=== PATIENT | male | born 1960 | race Caucasian/White ===

== ENCOUNTER 2016-06-14 22:40 | Emergency (ER) | payer OTHER ==
[~2016-06-14 22:40] MED LIST: ALBUTEROL HFA60 DOSE IN; ENTERIC COATED325 M1 PO; FLOVENT HFA110 MCG IN; LASIX20 MG PO; MICRO-K 10 EQU10 MEQ PO; PRINIVIL5 MG PO; TOPROL XL50 MG PO
--- NOTE | 2016-06-15 01:02 | ED NURSING NOTES ---
Clinical Report - Nurses [facility] [address] [place] [address] 06/14/2016 22:41 Patient: CHON BLACKMAN TRIAGE Alert. No acute distress. --22:51 Antolin Jalloh R.N. 22:50 06/14/16. BP: 113/75. RR: 16. O2 saturation: 100%. Temp: 99 F. --22:51 Antolin Jalloh R.N. 22:53 06/14/16. HR: 93. O2 saturation: 95%. --22:54 Antolin Jalloh R.N. Triage time 2254 PM. Chief Complaint: CONSTIPATION. --22:59 Antolin Jalloh R.N. Weight: 90.7 kg. Height/Length: 71 inches. BMI: 27.9. --22:50 Antolin Jalloh R.N. Medications Albuterol Sulfate Inhalation. --22:51 Antolin Jalloh R.N. Clobetasol Propionate External. --22:51 Antolin Jalloh R.N. Flovent HFA Inhalation. --22:51 Antolin Jalloh R.N. Lasix Oral. --22:52 Antolin Jalloh R.N. Lisinopril Oral. --22:52 Antolin Jalloh R.N. Metoprolol Succinate ER Oral. --22:55 Antolin Jalloh R.N. MiraLax Oral. --22:55 Antolin Jalloh R.N. NexIUM Oral. --22:56 Antolin Jalloh R.N. Potassium Chloride Oral. --22:56 Antolin Jalloh R.N. ProAir HFA Inhalation. --22:56 Yeimi, Antolin, R.N. Ranitidine HCl Oral. --22:56 Antolin Jalloh R.N. Suprep Bowel Prep Oral. --22:56 Atnolin Jalloh R.N. Triamcinolone Acetonide External. --22:57 Antolin Jalloh R.N. Allergies Sulfa Antibiotics. --22:55 Antolin Jalloh R.N. Penicillin. --22:55 Antolin Jalloh R.N. History Arrived by private vehicle. Historian: patient. Accompanied by family. PAST MEDICAL HX: Immunizations: up-to-date. SOCIAL HX: Light tobacco smoker (cigarette)- less than 1/2 a pack per day. Alcohol use. (no). History of drug use: marijuana. No infectious disease exposure. FALL RISK ASSESSMENT: Fall risk assessment completed. No fall risk identified. NUTRITIONAL RISK ASSESSMENT: The nutritional risk assessment revealed no deficiencies. FUNCTIONAL ASSESSMENT: Functional assessment: no impairments noted. LEARNING NEEDS ASSESSMENT: The learning needs assessment revealed no barriers. SKIN INTEGRITY ASSESSMENT: Skin integrity risk assessment completed. No skin integrity risk identified. --22:59 Antolin Jalloh R.N. PROBLEMS: Congestive Heart Failure. Chest Pain. Constipation. Hearing Loss. COPD - Chronic Obstructive Pulmonary Disease. Lifestyle / Substance Problems. Bronchitis. Abdominal Pain. Cholecystitis. Immunizations. Gallbladder Disease. --22:58 Antolin Jalloh R.N. ADDITIONAL SURGERIES: Cholecystectomy. Shoulder Surgery. --22:58 Antolin Jalloh R.N. PHYSICAL ASSESSMENT Ambulatory to room. GENERAL / NEURO / PSYCH: Alert. Oriented X 4. Appears in no acute distress. HEENT: Mucous membranes are pink. RESPIRATORY: Respirations not labored. CVS: Normal sinus rhythm noted. Capillary refill less than 2 seconds. GI / : Abdominal distention. ( constipation). SKIN: Skin is warm and dry. --22:59 Antolin Jalloh R.N. NURSING PROGRESS NOTES Soap suds enema given with good return, patient tolerated the procedure well. --01:19 Antolin Jalloh R.N. DISPOSITION / DISCHARGE Condition at departure: improved. The goals identified in the patient's plan of care were met. Discharge instructions provided and reviewed with the patient. Reviewed medication(s) side effects, precautions, dosing and course information. Prescription(s) given to the patient. Patient verbalized understanding. Written instructions provided in Upper Sorbian. The patient was discharged home and accompanied by spouse. He left the Emergency Department ambulatory and via private vehicle. Spouse driving. FALL RISK ASSESSMENT: Fall risk assessment completed. No fall risk identified. --01:18 Antolin Jalloh R.N. 01:14 06/15/16. BP: 94/51 taken on the left arm, via an automated monitor, while lying. HR: 91. RR: 16. O2 saturation: 95%. Temp: 98.2 F (oral). Pain level now: 0/10. --01:18 Antolin Jalloh R.N. Departure time: 0119 AM. --01:19 Antolin Jalloh R.N. Locked/Released at 06/15/2016 1:20 by Antolin Jalloh R.N.
--- NOTE | 2016-06-15 01:02 | ED ORDER SUMMARY ---
..... Patient: CHON BLACKMAN OrderSheet [facility] VisitID: [id number] [address] [place] [address] 56y, M Registration Date/Time: 06/14/2016 ORDER SHEET Weight: 90.7 kg Allergies: Sulfa Antibiotics, Penicillin GENERAL ORDERS: Abdomen 1V Urgent (22:57 06/14/2016 EKoroleva P.A.-C) (Ack 23:00 LMuller) (0:01 GUnger) - (enema of choice) (22:57 06/14/2016 EKoroleva P.A.-C) (0:52 LMuller) CBC w Diff Urgent (22:57 06/14/2016 EKoroleva P.A.-C) (Ack 23:00 LMuller) (23:29 LMuller) CMP Urgent (22:57 06/14/2016 EKoroleva P.A.-C) (Ack 23:00 LMuller) (23:29 LMuller) MEDICATION ORDERS: IV FLUIDS: ORDER SHEET NOTES: [Electronically signed by Antolin Jalloh R.N. (:06/15/2016)] [Electronically signed by Emmy June MD (06:07 06/15/2016)] [Electronically locked/signed by Antolin Jalloh R.N. (:06/15/2016)]
--- NOTE | 2016-06-15 01:02 | ED NURSING NOTES ---
Clinical Report - Nurses [facility] [address] [place] [address] 06/14/2016 22:41 Patient: CHON BLACKMAN TRIAGE Alert. No acute distress. --22:51 Antolin Jalloh R.N. 22:50 06/14/16. BP: 113/75. RR: 16. O2 saturation: 100%. Temp: 99 F. --22:51 Antolin Jalloh R.N. 22:53 06/14/16. HR: 93. O2 saturation: 95%. --22:54 Antolin Jalloh R.N. Triage time 2254 PM. Chief Complaint: CONSTIPATION. --22:59 Antolin Jalloh R.N. Weight: 90.7 kg. Height/Length: 71 inches. BMI: 27.9. --22:50 Antolin Jalloh R.N. Medications Albuterol Sulfate Inhalation. --22:51 Antolin Jalloh R.N. Clobetasol Propionate External. --22:51 Antolin Jalloh R.N. Flovent HFA Inhalation. --22:51 Antolin Jalloh R.N. Lasix Oral. --22:52 Antolin Jalloh R.N. Lisinopril Oral. --22:52 Antolin Jalloh R.N. Metoprolol Succinate ER Oral. --22:55 Antolin Jalloh R.N. MiraLax Oral. --22:55 Antolin Jalloh R.N. NexIUM Oral. --22:56 Antolin Jalloh R.N. Potassium Chloride Oral. --22:56 Antolin Jalloh R.N. ProAir HFA Inhalation. --22:56 Yeimi, Antolin, R.N. Ranitidine HCl Oral. --22:56 Antolin Jalloh R.N. Suprep Bowel Prep Oral. --22:56 Antolin Jalloh R.N. Triamcinolone Acetonide External. --22:57 Antolin Jalloh R.N. Allergies Sulfa Antibiotics. --22:55 Antolin Jalloh R.N. Penicillin. --22:55 Antolin Jalloh R.N. History Arrived by private vehicle. Historian: patient. Accompanied by family. PAST MEDICAL HX: Immunizations: up-to-date. SOCIAL HX: Light tobacco smoker (cigarette)- less than 1/2 a pack per day. Alcohol use. (no). History of drug use: marijuana. No infectious disease exposure. FALL RISK ASSESSMENT: Fall risk assessment completed. No fall risk identified. NUTRITIONAL RISK ASSESSMENT: The nutritional risk assessment revealed no deficiencies. FUNCTIONAL ASSESSMENT: Functional assessment: no impairments noted. LEARNING NEEDS ASSESSMENT: The learning needs assessment revealed no barriers. SKIN INTEGRITY ASSESSMENT: Skin integrity risk assessment completed. No skin integrity risk identified. --22:59 Antolin Jlaloh R.N. PROBLEMS: Congestive Heart Failure. Chest Pain. Constipation. Hearing Loss. COPD - Chronic Obstructive Pulmonary Disease. Lifestyle / Substance Problems. Bronchitis. Abdominal Pain. Cholecystitis. Immunizations. Gallbladder Disease. --22:58 Antolin Jalloh R.N. ADDITIONAL SURGERIES: Cholecystectomy. Shoulder Surgery. --22:58 Antolin Jalloh R.N. PHYSICAL ASSESSMENT Ambulatory to room. GENERAL / NEURO / PSYCH: Alert. Oriented X 4. Appears in no acute distress. HEENT: Mucous membranes are pink. RESPIRATORY: Respirations not labored. CVS: Normal sinus rhythm noted. Capillary refill less than 2 seconds. GI / : Abdominal distention. ( constipation). SKIN: Skin is warm and dry. --22:59 Antolin Jalloh R.N. NURSING PROGRESS NOTES Soap suds enema given with good return, patient tolerated the procedure well. --01:19 Antolin Jalloh R.N. DISPOSITION / DISCHARGE Condition at departure: improved. The goals identified in the patient's plan of care were met. Discharge instructions provided and reviewed with the patient. Reviewed medication(s) side effects, precautions, dosing and course information. Prescription(s) given to the patient. Patient verbalized understanding. Written instructions provided in Kinyarwanda. The patient was discharged home and accompanied by spouse. He left the Emergency Department ambulatory and via private vehicle. Spouse driving. FALL RISK ASSESSMENT: Fall risk assessment completed. No fall risk identified. --01:18 Antolin Jalloh R.N. 01:14 06/15/16. BP: 94/51 taken on the left arm, via an automated monitor, while lying. HR: 91. RR: 16. O2 saturation: 95%. Temp: 98.2 F (oral). Pain level now: 0/10. --01:18 Antolin Jalloh R.N. Departure time: 0119 AM. --01:19 Antolin Jalloh R.N. Locked/Released at 06/15/2016 1:20 by Antolin Jalloh R.N.
--- NOTE | 2016-06-15 01:02 | ED ORDER SUMMARY ---
..... Patient: CHON BLACKMAN OrderSheet [facility] VisitID: [id number] [address] [place] [address] 56y, M Registration Date/Time: 06/14/2016 ORDER SHEET Weight: 90.7 kg Allergies: Sulfa Antibiotics, Penicillin GENERAL ORDERS: Abdomen 1V Urgent (22:57 06/14/2016 EKoroleva P.A.-C) (Ack 23:00 LMuller) (0:01 GUnger) - (enema of choice) (22:57 06/14/2016 EKoroleva P.A.-C) (0:52 LMuller) CBC w Diff Urgent (22:57 06/14/2016 EKoroleva P.A.-C) (Ack 23:00 LMuller) (23:29 LMuller) CMP Urgent (22:57 06/14/2016 EKoroleva P.A.-C) (Ack 23:00 LMuller) (23:29 LMuller) MEDICATION ORDERS: IV FLUIDS: ORDER SHEET NOTES: [Electronically signed by Antolin Jalloh R.N. (:06/15/2016)] [Electronically signed by Emmy June MD (06:07 06/15/2016)] [Electronically locked/signed by Antolin Jalloh R.N. (:06/15/2016)]
--- NOTE | 2016-06-15 01:02 | ED CLINICAL REPORT ---
Clinical Report - Physicians/Mid Levels [facility] [address] [place] [address] 06/14/2016 22:41 Patient: CHON BLACKMAN Time Seen: 22:58 Jun 14 2016. Arrived- By private vehicle. Historian- patient. HISTORY OF PRESENT ILLNESS Chief Complaint: ABDOMINAL PAIN. This started 1 months [employer] and is still present. It is described as cramping and dull and it is described as generalized in location. No nausea, loss of appetite, vomiting or diarrhea. (Constipation ongoing for a month. Reports previously seen at [facility] on the , recently seen at his pcp, and GI, referred for colonoscopy. Has had very small fine bm, brown, and with such hematochezia, bright red in nature. Pain is colicky in nature, and passes and improves from time to time. Denies emesis. Denies sob. Has tried mirilax, stool softeners, incrase in po fluid hydration at home. Has not had enema.). Similar symptoms previously: Recent medical care: The patient was seen recently at another facility in a clinic. ( Pt has been seen several times for this, and is pending colonoscopy.). REVIEW OF SYSTEMS No constipation, black stools, hematemesis, difficulty with urination or pain with urination. No urinary frequency, fever, headache, blurred vision or chest pain. No difficulty breathing, cough, joint pain, skin rash or chills. No back pain. Last bowel movement- possibly 1 month, small amt of stool every now and again. All systems otherwise negative, except as recorded above. PAST HISTORY No history of peptic ulcer. No history of bowel obstruction. Problems: Congestive Heart Failure. Chest Pain. Constipation. Hearing Loss. COPD - Chronic Obstructive Pulmonary Disease. Lifestyle / Substance Problems. Bronchitis. Abdominal Pain. Cholecystitis. Immunizations. Gallbladder Disease. Additional Surgeries: Cholecystectomy. Shoulder Surgery. Medications: Triamcinolone Acetonide External. Suprep Bowel Prep Oral. Ranitidine HCl Oral. ProAir HFA Inhalation. Potassium Chloride Oral. NexIUM Oral. MiraLax Oral. Metoprolol Succinate ER Oral. Lisinopril Oral. Lasix Oral. Flovent HFA Inhalation. Clobetasol Propionate External. Albuterol Sulfate Inhalation. Allergies: Penicillin. Sulfa Antibiotics. SOCIAL HISTORY Smoker- current status unknown. History of drug use: marijuana. No alcohol use. ADDITIONAL NOTES The nursing notes have been reviewed. PHYSICAL EXAM Vital Signs: 06/14/2016 22:53 HR: 93. O2 saturation: 95%. 06/14/2016 22:50 BP: 113/75. RR: 16. O2 saturation: 100%. Temp: 99 F. Appearance: Alert. Oriented X3. No acute distress. Eyes: Pupils equal, round and reactive to light. Eyes normal inspection. ENT: Ears normal. Nose normal. Neck: Normal inspection. No carotid bruit or lymphadenopathy. CVS: Normal heart rate and rhythm. Heart sounds normal. Rhythm normal. No cardiac murmur. Respiratory: No respiratory distress. Breath sounds normal. Abdomen: Soft. Mild tenderness diffusely and in the periumbilical area. No guarding, rebound tenderness or Restrepo's or obturator sign present. Abnormal bowel sounds: hyperactive. Distention. Back: Normal inspection. No CVA tenderness. Skin: Skin warm and dry. Normal skin color. No rash. Normal skin turgor. Extremities: Extremities exhibit normal ROM. Neuro: Oriented X 3. No motor deficit. No sensory deficit. LABS, X-RAYS, AND EKG KUB: No acute disease. Gas pattern normal. Psoas shadows normal. Soft tissues normal. No mass effect. No organomegaly present. No fracture or bony lesion present. Views: two-view AP. Technique: good. The X-rays were independently viewed by me and interpreted contemporaneously by me. Prior films were not available for comparison. Laboratory Tests: CBC w Diff: (ROBERT: 06/14/2016 23:06) ( MsgRcvd 06/14/2016 23:18) Final results Test Result Flag Units (Reference) WHITE BLOOD COUNT 14.9 H K/uL (4.5-11.5) RED BLOOD COUNT 4.45 L M/uL (4.50-5.90) HEMOGLOBIN 13.0 L gm/dL (13.5-17.5) HEMATOCRIT 39.8 L % (41.0-53.0) MEAN CELL VOLUME 89 fL (80-100) MEAN CORPUSCULAR HGB 29 pg (26-34) MEAN CORPUSCULAR HGB CONC 33 g/dL (31-37) RED CELL DISTRIBUTION WIDTH 13.1 % (11.6-14.8) PLATELET COUNT 540 H K/uL (150-400) LYMPH % 23.9 L % (25-40) MONO % 5.4 % (3-14) GRANULOCYTE % 70.7 CMP: (ROBERT: 06/14/2016 23:06) ( MsgRcvd 06/14/2016 23:33) Final results Test Result Flag Units (Reference) GLUCOSE 106 mg/dL (70-110) BUN 9 mg/dL (7-18) CREATININE 1.2 mg/dL (0.6-1.3) Estimated GFR >60 mL/min Estimated GFR- >60 mL/min Note: Persistent reduction over 3 months in eGFR<60 mL/min/1.73 m2 defines CKD. Patients with eGFR values>=60 mL/min/1.73 m2 may also have CKD if evidence ofpersistent proteinuria. Additional information may be foundat www.kidney.org. SODIUM 137 mmol/L (136-145) POTASSIUM 3.3 L mmol/L (3.5-5.1) CHLORIDE 98 mmol/L (98-107) CARBON DIOXIDE 32 mmol/L (21-32) CALCIUM 8.6 mg/dL (8.5-10.1) TOTAL PROTEIN 7.5 g/dL (6.4-8.2) ALBUMIN 3.2 L g/dL (3.3-5.0) BILIRUBIN, TOTAL 0.4 mg/dL (0.0-1.0) ALKALINE PHOSPHATASE 95 U/L (46-116) AST (SGOT) 21 U/L (15-37) ALT (SGPT) 34 U/L (12-78) . Pulse Oximetry: 06/14/2016 22:50 O2 saturation: 100%. (FIO2 - room air). Interpretation: normal. PROGRESS AND PROCEDURES Course of Care: Pt was given 2 enemas in the ED, with some response. I have d/w pt and girlfriend, at length, the importance of dietary changes to avoid further issues with constipation. Pt is encouraged to continue his plan to have the colonoscopy done. Patient and family counseled in person regarding the patient's stable condition, test results, diagnosis and need for additional testing and follow-up. Concerns were addressed. Old medical records reviewed. Disposition: Discharged. Condition: stable and improved. CLINICAL IMPRESSION Constipation INSTRUCTIONS Drink plenty of fluids. (Your tests look good. The best long-term solution to your constipation is to add more fiber into your diet. You can get this from many different fruits and vegetables (raw is best), as well as whole grains (seedy bread, wild or brown rice, quinoa). If chewing is an issue, make a smoothie (banana, lina/peach, pineapple and strawberry is a good combo). You can throw in flax or ryley seeds, and even kale. You may add a little sweetener, sparingly, to taste. Raw berries (strawberries, raspberries, blueberries) are also excellent for constipation prevention, and easy on the teeth. In the meantime, you may also take the bowel prep and give yourself enemas at home (available over the counter). Please keep your plan to follow up for a colonoscopy.). Warnings: GENERAL WARNINGS: Return or contact your physician immediately if your condition worsens or changes unexpectedly, if not improving as expected, or if other problems arise. Your Current Medications: CONTINUE TAKING THE FOLLOWING MEDICATIONS: Albuterol Sulfate Inhalation. Clobetasol Propionate External. Flovent HFA Inhalation. Lasix Oral. Lisinopril Oral. Metoprolol Succinate ER Oral. MiraLax Oral. NexIUM Oral. Potassium Chloride Oral. ProAir HFA Inhalation. Ranitidine HCl Oral. Suprep Bowel Prep Oral. Triamcinolone Acetonide External. Prescription Medications: Anusol-HC 25 mg suppositories: insert 1 suppository into the rectum every 12 hours. Dispense twenty (20). No refills. Substitution is permissible. GoLYTELY: drink 8 ounces every 6 hours as needed for constipation. Dispense four (4) Liter jug. No refills. Substitution is permissible Follow-up: Follow up with your doctor. Call for the next available appointment. Understanding of the discharge instructions verbalized by patient and family. (Electronically signed by Emmy June MD 06/15/2016 6:07)
--- NOTE | 2016-06-15 06:07 | ED DISCHARGE INSTRUCTIONS ---
Patient: CHON BLACKMAN General Instructions [facility] VisitID: [id number] [place] [address] 56y, M Registration Date/Time: 06/14/2016 Constipation INSTRUCTIONS Drink plenty of fluids. (Your tests look good. The best long-term solution to your constipation is to add more fiber into your diet. You can get this from many different fruits and vegetables (raw is best), as well as whole grains (seedy bread, wild or brown rice, quinoa). If chewing is an issue, make a smoothie (banana, lina/peach, pineapple and strawberry is a good combo). You can throw in flax or ryley seeds, and even kale. You may add a little sweetener, sparingly, to taste. Raw berries (strawberries, raspberries, blueberries) are also excellent for constipation prevention, and easy on the teeth. In the meantime, you may also take the bowel prep and give yourself enemas at home (available over the counter). Please keep your plan to follow up for a colonoscopy.). Warnings: GENERAL WARNINGS: Return or contact your physician immediately if your condition worsens or changes unexpectedly, if not improving as expected, or if other problems arise. Your Current Medications: CONTINUE TAKING THE FOLLOWING MEDICATIONS: Albuterol Sulfate Inhalation. Clobetasol Propionate External. Flovent HFA Inhalation. Lasix Oral. Lisinopril Oral. Metoprolol Succinate ER Oral. MiraLax Oral. NexIUM Oral. Potassium Chloride Oral. ProAir HFA Inhalation. Ranitidine HCl Oral. Suprep Bowel Prep Oral. Triamcinolone Acetonide External. Prescription Medications: Anusol-HC 25 mg suppositories: insert 1 suppository into the rectum every 12 hours. Dispense twenty (20). No refills. Substitution is permissible. GoLYTELY: drink 8 ounces every 6 hours as needed for constipation. Dispense four (4) Liter jug. No refills. Substitution is permissible Follow-up: Follow up with your doctor. Call for the next available appointment. Understanding of the discharge instructions verbalized by patient and family. ADDITIONAL INFORMATION Constipation (Adult) Constipation is bowel movements that are less frequent than usual. Stools often become very hard and difficult to pass. This may lead to abdominal pain and bloating. It may also cause painful bowel movements. Constipation may be due to a diet thats low in fiber. Some medications, especially pain medications, can also cause it. Constipation may be treated with enemas, suppositories, laxatives or stool softeners. Your doctor will advise you which will work best for you. Follow the advice below to help avoid this problem in the future. Home Care Medication: Take any medicines as directed. Some laxatives are safe only for occasional use. Others can be taken on a regular basis. Talk to your doctor or pharmacist if you have questions. General Care: Prescription pain medications can cause constipation. If you are prescribed pain medications, ask the doctor whether you should also take a stool softener. A diet high in fiber with plenty of fluids helps to maintain regular, soft bowel movements. The following foods are good sources of dietary fiber: Cereals and breads: Whole grain cereal with bran, oatmeal, rolled oats, whole grain breads Fruits: All fruits (fresh and dried), raisins, prunes, apricots, berries, figs Vegetables: Any fresh vegetables, especially peas, broccoli, brussels sprouts, winter squash, green beans, cauliflower, medeiros beans, carrots Other: Popcorn, brown rice Drink plenty of water when you increase the amount of fiber you eat. Follow Up with your doctor or return to this facility if symptoms do not improve in the next few days. You may require further tests or a referral to a specialist. Get Prompt Medical Attention if any of the following occur: Fever over 100.4F (38C) Failure to resume normal bowel movements Increasing abdominal or back pain Nausea or vomiting Abdominal swelling Blood in the stool Weakness, dizziness or fainting Unexpected vaginal bleeding You have been given the following additional information: Constipation (Adult) (Electronically signed by Emmy June MD 06/15/2016 6:07)
--- NOTE | 2016-06-15 06:07 | ED MED RECONCILIATION SUMMARY ---
Patient: CHON BLACKMAN Medication Reconciliation Report [facility] VisitID: [id number] [address] [place] [address] 56y, M Registration Date/Time: 06/14/2016 Weight: 90.7 kg Height/Length: 71 in. BMI: 27.9 ALLERGIES: Penicillin, Sulfa Antibiotics The patient's Home Medications are listed below: CONTINUE TAKING THE FOLLOWING MEDICATIONS: Albuterol Sulfate Inhalation Clobetasol Propionate External Flovent HFA Inhalation Lasix Oral Lisinopril Oral Metoprolol Succinate ER Oral MiraLax Oral NexIUM Oral Potassium Chloride Oral ProAir HFA Inhalation Ranitidine HCl Oral Suprep Bowel Prep Oral Triamcinolone Acetonide External The source(s) of the original Home Medication information: Not obtained. The following Medications were given to the patient in the Emergency Department: None. The following Medications were prescribed to the patient: Anusol-HC 25 mg suppositories: insert 1 suppository into the rectum every 12 hours. Dispense twenty (20). No refills. Substitution is permissible. -- Emmy June MD GoLYTELY: drink 8 ounces every 6 hours as needed for constipation. Dispense four (4) Liter jug. No refills. Substitution is permissible -- Emmy June MD
--- NOTE | 2016-06-15 06:07 | ED MAR SUMMARY ---
..... Medication Administration Record [facility] [address] [place], [place] [id number] Patient: CHON BLACKMAN Visit ID: [id number] 56y, M Weight: 90.7 kg Height/Length: 71 in BMI: 27.9 ALLERGIES: Penicillin, Sulfa Antibiotics
--- NOTE | 2016-06-15 06:07 | ED MAR SUMMARY ---
..... Medication Administration Record [facility] [address] [place], [place] [id number] Patient: CHON BLACKMAN Visit ID: [id number] 56y, M Weight: 90.7 kg Height/Length: 71 in BMI: 27.9 ALLERGIES: Penicillin, Sulfa Antibiotics
--- NOTE | 2016-06-15 06:07 | ED MED RECONCILIATION SUMMARY ---
Patient: CHON BLACKMAN Medication Reconciliation Report [facility] VisitID: [id number] [address] [place] [address] 56y, M Registration Date/Time: 06/14/2016 Weight: 90.7 kg Height/Length: 71 in. BMI: 27.9 ALLERGIES: Penicillin, Sulfa Antibiotics The patient's Home Medications are listed below: CONTINUE TAKING THE FOLLOWING MEDICATIONS: Albuterol Sulfate Inhalation Clobetasol Propionate External Flovent HFA Inhalation Lasix Oral Lisinopril Oral Metoprolol Succinate ER Oral MiraLax Oral NexIUM Oral Potassium Chloride Oral ProAir HFA Inhalation Ranitidine HCl Oral Suprep Bowel Prep Oral Triamcinolone Acetonide External The source(s) of the original Home Medication information: Not obtained. The following Medications were given to the patient in the Emergency Department: None. The following Medications were prescribed to the patient: Anusol-HC 25 mg suppositories: insert 1 suppository into the rectum every 12 hours. Dispense twenty (20). No refills. Substitution is permissible. -- Emmy June MD GoLYTELY: drink 8 ounces every 6 hours as needed for constipation. Dispense four (4) Liter jug. No refills. Substitution is permissible -- Emmy June MD
--- NOTE | 2016-06-15 07:05 | DIAGNOSTIC IMAGING REPORT ---
PROCEDURE: XR ABDOMEN 1 VIEW INDICATION: ABDOMINAL PAIN TECHNIQUE: AP upright view. COMPARISON: None. FINDINGS: Mild gaseous distention of the small bowel and colon with a few air-fluid levels and cecum. No evidence of free air. Soft tissues and osseous structures are normal. Status post cholecystectomy (surgical clips). Calcification overlying the lower pelvis are most likely vascular. IMPRESSION: 1. Mild gaseous distention of the small bowel and colon. Consider enterocolitis, ileus, or air swallowing.
== END 2016-06-15 01:20 | disposition home or self-care (01) ==
LOC: ED SRH 22:40
DX: K59.00 Constipation, unspecified (principal); I50.9 Heart failure, unspecified; J44.9 Chronic obstructive pulmonary disease, unspecified; Z79.51 Long term (current) use of inhaled steroids; Z79.899 Other long term (current) drug therapy; Z88.0 Allergy status to penicillin; Z88.2 Allergy status to sulfonamides
CPT/HCPCS: 90100; 95059